=== PATIENT | female | born 1970 | race Caucasian/White ===

== ENCOUNTER → 2017-01-24 | Outpatient (CLI) | payer BC ==
--- NOTE | 2017-01-25 07:10 | CT ---
EXAMINATION TYPE: CT abdomen pelvis w con DATE OF EXAM: 01/24/2017 5:48 PM HISTORY: Abdominal pain that is worsening x10 days. CT DLP: 378.9mGycm Automated Exposure Control for Dose Reduction was Utilized. CONTRAST: CT scan of the abdomen and pelvis is performed with IV Contrast, patient injected with 100 mL of Omni paque 300. COMPARISON: CT abdomen pelvis dated 10/15/2012 FINDINGS: LUNG BASES: No significant abnormality is appreciated other than bibasilar subsegmental atelectasis. LIVER/GB: Numerous hypoattenuated hepatic lesions are scattered throughout the hepatic parenchyma the largest within the left hepatic lobe measuring approximately 1.2 cm. Some of these are stable from t he prior exam, others more pronounced, and others less pronounced. These are favored to be benign in etiology and may represent biliary hamartomas, cysts or hemangiomas. The gallbladder is elongated but the common bile duct is within normal limits of size measuring 3 mm. No right upper quadrant fat str anding is seen or gallbladder wall thickening. No pericholecystic fluid. PANCREAS: There is persistent mild ductal dilatation of the main pancreatic duct measuring up to 3.5 mm at the pancreatic body. Both the ventral and dorsal ducts are dilated. Pancreatic parenchyma is un remarkable. SPLEEN: At least 2 hypoattenuated subcentimeter splenic lesions are seen that are stable from the gianna or exam and likely relate to benign hemangiomas or lymphangiomas. ADRENALS: No significant abnormality is seen. KIDNEYS: No significant abnormality is seen. The previously described 4.5 mm left renal cyst is not v isualized on this examination. BOWEL: No significant abnormality is seen. No enlarged or dilated bowel is noted. UTERUS/ADNEXA: No gross abnormality seen. Follicular changes are seen of the right ovary with resolut ion of the previously seen right adnexal cystic structure on the exam of 10/15/2012. Uterus is multilo bulated with a fundal leiomyoma. LYMPH NODES: No greater than 1cm abdominal or pelvic lymph nodes are appreciated. A prominent right i nternal iliac chain lymph node measures 9 mm but is unchanged from the prior exam. OSSEOUS STRUCTURES: No significant abnormality is seen. Mild degenerative changes are seen of the lum bosacral junction. OTHER: No significant additional abnormality is seen. IMPRESSION: 1. No CT finding is seen to account for patient's worsening abdominal pain. 2. Resolved right ovarian cystic lesion with follicular change and not seen of the right ovary. 3. Numerous hepatic hypoattenuating lesions some of which are no longer seen from the prior exam, logan e of which are more pronounced than on the prior exam, and some of which are stable from the prior ex am. These are favored to represent a benign etiology and may represent biliary hamartomas, cysts, or hemangiomas however the majority are subcentimeter and too small to accurately characterize.
== END | disposition home or self-care (01) ==
LOC: RADCTMAIN 16:51
PROVIDERS: ATTEND Internal Medicine
DX: K76.9 Liver disease, unspecified (principal)
CPT/HCPCS: 74177; Q9967

== ENCOUNTER 2017-11-11 16:24 | Emergency (ER) | payer BC ==
--- NOTE | 2017-11-11 17:25 | ED ---
General Adult HPI - General Chief complaint: Chest Pain Stated complaint: Chest Tightness Time Seen by Provider: 11/11/17 17:10 Source: patient, RN notes reviewed Mode of arrival: ambulatory Limitations: no limitations - History of Present Illness Initial comments: This is a 47 year old female who presents with a chief complaint of left lower chest pain that radiates down her left flank to her left mid back. These symptoms began yesterday. She denies any associated increase in pain intensity after eating. She denies shortness of breath fever, chills or abdominal pain. She states the pain is worse when she takes a deep inspiration. The pain is better when the patient sits up right or leans slightly forward. She states that she has an appointment scheduled with her primary care physician, but felt that she should come to the Emergency department since the symptoms have not seemed to resolve. - Related Data Home Medications Medication Instructions Recorded Confirmed Zicam 1 tab PO DAILY PRN 11/11/17 11/11/17 Previous Rx's Medication Instructions Recorded Ibuprofen [Motrin] 600 mg PO Q8HR PRN #30 tab 11/11/17 Allergies Allergy/AdvReac Type Severity Reaction Status Date / Time bee pollen Allergy Swelling Verified 11/11/17 17:29 Sulfa (Sulfonamide Allergy Rash/Hives Verified 11/11/17 17:29 Antibiotics) Review of Systems ROS Statement: Those systems with pertinent positive or pertinent negative responses have been documented in the HPI. ROS Other: All systems not noted in ROS Statement are negative. Past Medical History Past Medical History: No Reported History History of Any Multi-Drug Resistant Organisms: None Reported Past Surgical History: No Surgical Hx Reported Past Psychological History: No Psychological Hx Reported Smoking Status: Never smoker Past Alcohol Use History: Occasional Past Drug Use History: None Reported General Exam Limitations: no limitations General appearance: alert, in no apparent distress Head exam: Present: atraumatic, normocephalic, normal inspection Eye exam: Present: normal appearance, PERRL, EOMI. Absent: scleral icterus, conjunctival injection, periorbital swelling Neck exam: Present: normal inspection. Absent: tenderness, meningismus, lymphadenopathy Respiratory exam: Present: normal lung sounds bilaterally, chest wall tenderness. Absent: respiratory distress, wheezes, rales, rhonchi, stridor Cardiovascular Exam: Present: regular rate, normal rhythm, normal heart sounds. Absent: systolic murmur, diastolic murmur, rubs, gallop, clicks, JVD, S3, S4 GI/Abdominal exam: Present: soft, normal bowel sounds. Absent: distended, tenderness, guarding, rebound, rigid Extremities exam: Present: normal inspection, full ROM, normal capillary refill. Absent: tenderness, pedal edema, joint swelling, calf tenderness Back exam: Present: normal inspection, full ROM. Absent: tenderness Neurological exam: Present: alert, oriented X3, CN II-XII intact Psychiatric exam: Present: normal affect, normal mood Skin exam: Present: warm, dry, intact, normal color. Absent: rash Course Vital Signs 11/11/17 11/11/17 17:05 18:48 Temperature 97.6 F 97.7 F Pulse Rate 71 54 L Respiratory 18 16 Rate Blood Pressure 112/58 111/58 O2 Sat by Pulse 99 100 Oximetry EKG Findings - EKG Comments: EKG Findings:: EKG performed at 16:32 normal Sinus rhythm rate of 77 KS 140 QRS 94 QT/QTC 398/450 Medical Decision Making - Medical Decision Making 47-year-old female presented emergency department to complaint of left-sided chest pressure and pain worse with movement. Patient does have some symptoms consistent with a bronchitis. Patient had lab work, EKG, chest x-ray all within normal limits. She has no cardiac risk factors. D-dimer was negative I did discuss all the results with patient ARE answered BuSpar knowledge. Patient is comfortable with discharge and follow-up with her primary care physician at her scheduled appointment. We discussed return parameters. - Lab Data Result diagrams: 11/11/17 17:45 11/11/17 17:45 Lab Results 11/11/17 11/11/17 11/11/17 Range/Units 17:45 17:45 17:45 WBC 6.1 (3.8-10.6) k/uL RBC 4.30 (3.80-5.40) m/uL Hgb 13.0 (11.4-16.0) gm/dL Hct 40.7 (34.0-46.0) % MCV 94.5 (80.0-100.0) fL MCH 30.3 (25.0-35.0) pg MCHC 32.1 (31.0-37.0) g/dL RDW 12.7 (11.5-15.5) % Plt Count 244 (150-450) k/uL Neutrophils % 44 % Lymphocytes % 43 % Monocytes % 5 % Eosinophils % 4 % Basophils % 1 % Neutrophils # 2.7 (1.3-7.7) k/uL Lymphocytes # 2.6 (1.0-4.8) k/uL Monocytes # 0.3 (0-1.0) k/uL Eosinophils # 0.3 (0-0.7) k/uL Basophils # 0.1 (0-0.2) k/uL D-Dimer 0.19 (<0.60) mg/L FEU Sodium 143 (137-145) mmol/L Potassium 3.9 (3.5-5.1) mmol/L Chloride 108 H (98-107) mmol/L Carbon Dioxide 26 (22-30) mmol/L Anion Gap 9 mmol/L BUN 15 (7-17) mg/dL Creatinine 0.73 (0.52-1.04) mg/dL Est GFR (MDRD) Af Amer >60 (>60 ml/min/1.73 sqM) Est GFR (MDRD) Non-Af >60 (>60 ml/min/1.73 sqM) Glucose 86 (74-99) mg/dL Calcium 9.8 (8.4-10.2) mg/dL Total Bilirubin 0.4 (0.2-1.3) mg/dL AST 18 (14-36) U/L ALT 22 (9-52) U/L Alkaline Phosphatase 75 (38-126) U/L Total Creatine Kinase (30-135) U/L CK-MB (CK-2) (0.0-2.4) ng/mL CK-MB (CK-2) Rel Index Troponin I (0.000-0.034) ng/mL Total Protein 6.7 (6.3-8.2) g/dL Albumin 4.1 (3.5-5.0) g/dL Amylase 55 (30-110) U/L Lipase 92 (23-300) U/L Urine Color Urine Appearance (Clear) Urine pH (5.0-8.0) Ur Specific [place] (1.001-1.035) Urine Protein (Negative) Urine Glucose (UA) (Negative) Urine Ketones (Negative) Urine Blood (Negative) Urine Nitrite (Negative) Urine Bilirubin (Negative) Urine Urobilinogen (<2.0) mg/dL Ur Leukocyte Esterase (Negative) Urine RBC (0-5) /hpf Urine WBC (0-5) /hpf Ur Squamous Epith Cells (0-4) /hpf Urine Bacteria (None) /hpf Urine HCG, Qual (Not Detectd) 11/11/17 11/11/17 11/11/17 Range/Units 17:45 17:45 17:45 WBC (3.8-10.6) k/uL RBC (3.80-5.40) m/uL Hgb (11.4-16.0) gm/dL Hct (34.0-46.0) % MCV (80.0-100.0) fL MCH (25.0-35.0) pg MCHC (31.0-37.0) g/dL RDW (11.5-15.5) % Plt Count (150-450) k/uL Neutrophils % % Lymphocytes % % Monocytes % % Eosinophils % % Basophils % % Neutrophils # (1.3-7.7) k/uL Lymphocytes # (1.0-4.8) k/uL Monocytes # (0-1.0) k/uL Eosinophils # (0-0.7) k/uL Basophils # (0-0.2) k/uL D-Dimer (<0.60) mg/L FEU Sodium (137-145) mmol/L Potassium (3.5-5.1) mmol/L Chloride (98-107) mmol/L Carbon Dioxide (22-30) mmol/L Anion Gap mmol/L BUN (7-17) mg/dL Creatinine (0.52-1.04) mg/dL Est GFR (MDRD) Af Amer (>60 ml/min/1.73 sqM) Est GFR (MDRD) Non-Af (>60 ml/min/1.73 sqM) Glucose (74-99) mg/dL Calcium (8.4-10.2) mg/dL Total Bilirubin (0.2-1.3) mg/dL AST (14-36) U/L ALT (9-52) U/L Alkaline Phosphatase (38-126) U/L Total Creatine Kinase 41 (30-135) U/L CK-MB (CK-2) 0.5 (0.0-2.4) ng/mL CK-MB (CK-2) Rel Index 1.2 Troponin I <0.012 (0.000-0.034) ng/mL Total Protein (6.3-8.2) g/dL Albumin (3.5-5.0) g/dL Amylase (30-110) U/L Lipase (23-300) U/L Urine Color Light Yellow Urine Appearance Clear (Clear) Urine pH 7.0 (5.0-8.0) Ur Specific [place] 1.003 (1.001-1.035) Urine Protein Negative (Negative) Urine Glucose (UA) Negative (Negative) Urine Ketones Negative (Negative) Urine Blood Trace H (Negative) Urine Nitrite Negative (Negative) Urine Bilirubin Negative (Negative) Urine Urobilinogen <2.0 (<2.0) mg/dL Ur Leukocyte Esterase Small H (Negative) Urine RBC 1 (0-5) /hpf Urine WBC 1 (0-5) /hpf Ur Squamous Epith Cells <1 (0-4) /hpf Urine Bacteria Rare H (None) /hpf Urine HCG, Qual Not Detected (Not Detectd) Disposition Clinical Impression: Left-sided chest wall pain, Chest pain, musculoskeletal Disposition: HOME SELF-CARE Condition: Stable Instructions: Chest Pain (ED) Additional Instructions: Please return to the Emergency Department if symptoms worsen or any other concerns. Prescriptions: Ibuprofen [Motrin] 600 mg PO Q8HR PRN #30 tab PRN Reason: Pain Referrals: Suma Hernandez MD [Primary Care Provider] - 1-2 days Time of Disposition: 19:16
[2017-11-11 18:04] LABS: Basophils # (A) 0.1 k/uL (0-0.2); Basophils % (A) 1 %; Eosinophils # (A) 0.3 k/uL (0-0.7); Eosinophils % (A) 4 %; HCT 40.7 % (34.0-46.0); Lymphocytes # (A) 2.6 k/uL (1.0-4.8); Lymphocytes % (A) 43 %; MCH 30.3 pg (25.0-35.0); MCHC 32.1 g/dL (31.0-37.0); MCV 94.5 fL (80.0-100.0); Mean Platelet Volume 7.5; Monocytes # (A) 0.3 k/uL (0-1.0); Monocytes % (A) 5 %; Neutrophils # (A) 2.7 k/uL (1.3-7.7); Neutrophils % (A) 44 %; Platelet Count 244 k/uL (150-450); RDW 12.7 % (11.5-15.5); WBC 6.1 k/uL (3.8-10.6)
[2017-11-11 18:09] LABS: ALT 22 U/L (9-52); AST 18 U/L (14-36); Albumin 4.1 g/dL (3.5-5.0); Alkaline Phosphatase 75 U/L (38-126); Amylase 55 U/L (30-110); Anion Gap 9 mmol/L; Blood Urea Nitrogen 15 mg/dL (7-17); Calcium 9.8 mg/dL (8.4-10.2); Carbon Dioxide 26 mmol/L (22-30); Chloride 108 mmol/L (98-107); Glucose 86 mg/dL (74-99); Lipase 92 U/L (23-300); Potassium 3.9 mmol/L (3.5-5.1); Sodium 143 mmol/L (137-145); Total Bilirubin 0.4 mg/dL (0.2-1.3); Total Protein 6.7 g/dL (6.3-8.2)
[2017-11-11 18:10] LABS: Appearance,Urine Clear (Clear); Bacteria,Urine Rare /hpf; Bilirubin,Urine Negative (Negative); Blood,Urine Trace (Negative); Color,Urine Light Yellow; Glucose,Urine (UA) Negative (Negative); Ketones,Urine Negative (Negative); Leukocyte Esterase,Urine Small (Negative); Nitrite,Urine Negative (Negative); Protein,Urine Negative (Negative); RBC,Urine 1 /hpf (0-5); Specific Gravity,Urine 1.003 (1.001-1.035); Squamous Epithelial Cell,Urine <1 /hpf (0-4); Urobilinogen,Urine <2.0 mg/dL (<2.0); WBC,Urine 1 /hpf (0-5)
[2017-11-11 18:18] LABS: Creatine Kinase 41 U/L (30-135)
[2017-11-11] MEDS ORDERED: KETOROLAC 30 MG/ML 1 ML VIAL IVP STA (18:30)
[2017-11-11 18:31] LABS: Creatine Kinase MB 0.5 ng/mL (0.0-2.4); Troponin I <0.012 ng/mL (0.000-0.034)
--- NOTE | 2017-11-11 19:26 | XR ---
EXAMINATION TYPE: XR chest 2V DATE OF EXAM: 11/11/2017 COMPARISON: NONE HISTORY: Chest pain TECHNIQUE: Frontal and lateral views of the chest are obtained. FINDINGS: Heart and mediastinum are normal. Lungs are clear. Diaphragm is normal. Bony thorax is nor mal. There are chest leads. IMPRESSION: Normal chest
[2017-11-11 19:32] VITALS: BP 94/61; PULSE 60; RESP 18; TEMP 97.4
== END 2017-11-11 19:32 | disposition home or self-care (01) ==
LOC: EC 16:24
DX: R07.89 Other chest pain (principal); R10.9 Unspecified abdominal pain; M54.9 Dorsalgia, unspecified; Z91.030 Bee allergy status; Z88.2 Allergy status to sulfonamides
CPT/HCPCS: 36415; 93005; 85379; 80053; 82150; 82550; 82553; 83690; 84484; 85025; 81001; 81025; 71046; 99285; 96374; J1885

== ENCOUNTER → 2017-11-28 | Outpatient (CLI) | payer BC ==
--- NOTE | 2017-11-28 08:26 | US ---
EXAMINATION TYPE: US abdomen complete DATE OF EXAM: 11/28/2017 COMPARISON: US kidneys 06/15/[address] abdomen pelvis 02/13/2017 CLINICAL HISTORY: K87 Disorder of Biliary Track and. patient states chest pain and heaviness. EXAM MEASUREMENTS: Liver Length: 10.4 cm Gallbladder Wall: 0.2 cm CBD: 0.3 cm Spleen: 9.6 cm Right Kidney: 9.9 x 3.9 x 5.1 cm Left Kidney: 11.6 x 5.3 x 5.5 cm Pancreas: visualized portions wnl Liver: wnl Gallbladder: No stones seen Evidence for sonographic Blackman's sign: No CBD: wnl Spleen: wnl Right Kidney: No hydronephrosis or masses seen Left Kidney: No hydronephrosis or masses seen Upper IVC: wnl Abd Aorta: wnl There is no ascites. The liver is homogenous, small hypodensities noted on prior CT within the liver are not seen definiti vely on ultrasound. The intrahepatic portion of the IVC and proximal abdominal aorta are within norm al limits. There is no evidence of cholelithiasis. Common bile duct is unremarkable. The visualize d portions of the pancreas are homogenous. The spleen is unremarkable. Kidneys are symmetric and fr ee of hydronephrosis. No renal lesions are seen. IMPRESSION: No significant abnormalities evident.
[2017-11-28 09:06] LABS: T4, Free (Free Thyroxine) 1.04 ng/dL (0.78-2.19)
[2017-11-28 18:37] LABS: Hemoglobin A1C 5.5 % (4.0-6.0)
== END | disposition home or self-care (01) ==
LOC: RADUSWWP 07:33
PROVIDERS: ATTEND Internal Medicine
DX: K87 Disorders of gallbladder, biliary tract and pancreas in diseases classified elsewhere (principal); E78.00 Pure hypercholesterolemia, unspecified
CPT/HCPCS: 36415; 76700; 80061; 82306; 82550; 83036; 84439; 84443

== ENCOUNTER → 2018-08-25 | Outpatient (CLI) | payer BC ==
--- NOTE | 2018-08-25 19:52 | MR ---
EXAMINATION TYPE: MR knee LT wo con DATE OF EXAM: 08/25/2018 COMPARISON: Outside x-ray dated 08/04/2018 HISTORY: Left Knee Pain with some swelling since05/2018 TECHNIQUE: Multiplanar, multisequence imaging of the left knee is performed without IV contrast. FINDINGS: MEDIAL MENISCUS: There is pseudoextrusion of the medial meniscus with complex signal involving the mumtaz dy and posterior horn of the medial mixed compatible with meniscal tear. LATERAL MENISCUS: Increased signal involving the anterior horn of the lateral meniscus compatible wit h meniscal tear CRUCIATE LIGAMENTS: The anterior and posterior cruciate ligaments are intact and unremarkable. COLLATERAL LIGAMENTS: Lateral collateral ligament intact. There is increased signal surrounding the M CL. Findings compatible with MCL strain. EXTENSOR MECHANISM: Visualized quadriceps and patellar tendons are intact. EFFUSION: There is a small amount of fluid in the suprapatellar bursa. POPLITEAL CYST: No popliteal/villagran cyst. TRICOMPARTMENT SPACES: There is narrowing of the medial compartment of the knee joint and there is gr mirta 3 localized chondromalacia of the articular cartilage. No free fragment seen. BONE MARROW SIGNAL: No edema involving the medial tibia and femur at the level of the articular surfa ce likely reactive and related to bone contusion. OTHER: Small amount of prepatellar soft tissue edema noted. IMPRESSION: 1. Complex tear posterior horn and body medial meniscus. Reactive marrow edema noted within the adjac ent tibia and femur as discussed above. 2. MCL strain. 3. Findings compatible with tear anterior horn lateral meniscus. 4. Osteoarthritis medial compartment of the knee with grade III chondromalacia involving the articula r femoral cartilage.
== END | disposition home or self-care (01) ==
LOC: RADMRIMAIN 17:04
PROVIDERS: ATTEND Orthopaedic Surgery
DX: S83.282A Other tear of lateral meniscus, current injury, left knee, initial encounter (principal); S83.242A Other tear of medial meniscus, current injury, left knee, initial encounter; S83.412A Sprain of medial collateral ligament of left knee, initial encounter; M17.12 Unilateral primary osteoarthritis, left knee; M94.262 Chondromalacia, left knee

== ENCOUNTER → 2018-09-29 | Outpatient (CLI) | payer BC ==
[2018-09-29 17:09] LABS: Basophils # (A) 0.1 k/uL (0-0.2); Basophils % (A) 1 %; Eosinophils # (A) 0.2 k/uL (0-0.7); Eosinophils % (A) 3 %; HCT 39.3 % (34.0-46.0); HGB 13.1 gm/dL (11.4-16.0); Lymphocytes # (A) 2.8 k/uL (1.0-4.8); Lymphocytes % (A) 40 %; MCH 31.1 pg (25.0-35.0); MCHC 33.4 g/dL (31.0-37.0); MCV 93.1 fL (80.0-100.0); Mean Platelet Volume 7.2; Monocytes # (A) 0.4 k/uL (0-1.0); Monocytes % (A) 5 %; Neutrophils # (A) 3.4 k/uL (1.3-7.7); Neutrophils % (A) 49 %; Platelet Count 245 k/uL (150-450); RBC 4.22 m/uL (3.80-5.40); RDW 13.3 % (11.5-15.5)
[2018-09-29 17:15] LABS: Potassium 4.8 mmol/L (3.5-5.1)
== END | disposition home or self-care (01) ==
LOC: LABPAT 16:12
PROVIDERS: ATTEND Orthopaedic Surgery
DX: Z01.812 Encounter for preprocedural laboratory examination (principal); M23.92 Unspecified internal derangement of left knee
CPT/HCPCS: 36415; 80051; 85025

== ENCOUNTER → 2018-10-10 | Day surgery (SDC) | payer BC ==
[2018-10-08 15:22] VITALS: BMI 25.8
--- NOTE | 2018-10-09 10:58 | HP ---
HISTORY AND PHYSICAL CHIEF COMPLAINT: Left knee pain. 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 She is having pain with prolonged walking and giving intermittent giving way. She has tried anti-inflammatories with only partial temporary relief. She notes it does significantly limit her. PAST MEDICAL HISTORY: Significant for irritable bowel syndrome. PAST SURGICAL HISTORY: Significant for endometrial ablation. CURRENT MEDICATIONS: Restasis. She notes allergies to SULFA. FAMILY HISTORY: Significant for cancer. SOCIAL HISTORY: Negative for current tobacco or alcohol use. REVIEW OF SYSTEMS: A 16 point review of systems otherwise reviewed and is noncontributory. PHYSICAL EXAMINATION: On examination, the patient is approximately 5 foot 3, 146 pounds of mesomorphic habitus. HEENT exam is nonfocal. Neck is supple. She has painless passive motion of her left hip. Straight leg raise is negative. Active motion left knee -8 to 130 degrees of flexion. She has a moderate effusion. She is tender about the medial joint line. Collaterals are stable, Nikky is negative, Roxie's elicits medial pain. Her distal neurovascular exam appears intact in the left lower extremity. MRI report from on 08/25/2018 shows a posterior medial meniscal tear. IMPRESSION: 1. Left knee moderate medial compartment osteoarthrosis. 2. Left knee medial meniscal tear-symptomatic. RECOMMENDATIONS: I talked to the patient at length regarding her condition and treatment options. At this point, she is quite symptomatic and opts to proceed with surgery. Will plan to proceed with arthroscopic evaluation with possible partial medial meniscectomy. Risks and benefits were discussed at length in layman's terms. We will likely perform that as an outpatient procedure. MMODL / IJN: [id number] /
[~2018-10-10] MED LIST: DEXAMETHASONE SOD PHOSPHATE 10 MG/ML 1 ML VIAL IV ONE; EPINEPHrine (PF) 1 ML in SODIUM CHLORIDE 0.9% IRRIGATIO 3,000 ML IRRIGATION ONE; HYDROcodone/APAP 5-325MG 1 EACH TAB PO ONE; HYDROmorphone 0.5 MG/0.5 ML SYRINGE IVP ONE; LACTATED RINGERS 1,000 ML IV ONE; LACTATED RINGERS 1,000 ML IV SCH; LIDOCAINE 1% 20 ML VIAL (10MG/ML) FOR IV START INTRADERMA ONE; LIDOCAINE 1% INJ 10MG/ML (20 ML MDV) ONE; MIDAZOLAM 2 MG/2 ML VIAL ONE; ONDANSETRON 4 MG/2 ML VIAL IVP ONE; PROPOFOL 10 MG/ML 20 ML VIAL IV ONE; ceFAZolin 1,000 MG in DEXTROSE/WATER 1 50ML.BAG IVPB ONE; fentaNYL (PF) 50 MCG/ML 2 ML AMP ONE
--- NOTE | 2018-10-10 12:49 | P.OP ---
Date of Procedure: 10/10/18 Preoperative Diagnosis: Right knee internal derangement Postoperative Diagnosis: Right knee posterior medial meniscal tear Procedure(s) Performed: Right knee arthroscopic partial medial meniscectomy Anesthesia: DEEA Surgeon: Tariq Haider Estimated Blood Loss (ml): 10 Pathology: none sent Condition: stable Disposition: PACU Indications for Procedure: The patient's a 48-year-old female who presents with progressive right knee pain and mechanical symptoms despite conservative measures. A discussion of the risks and benefits of operative intervention versus continued conservative measures was made with the patient. She opted to proceed with surgery. Operative risks to include infection, neurovascular injury, development of blood clots, possible incomplete resolution of symptoms, possible worsening of symptoms and need for subsequent procedures was discussed. Informed consent was obtained. Operative Findings: As below Description of Procedure: The patient was brought to the operating room, and after induction of general anesthesia examined the right knee. Collaterals were stable, Nikky was negative, and posterior drawer was negative. The right lower extremity was prepped and draped in a normal fashion. A superior lateral portal was made through a 3 mm skin incision superior and lateral to the patella. This was used for outflow. A lateral portal was made through a 5 mm vertical skin incision lateral to the patella tendon above the joint line. Diagnostic arthroscopy was performed. On inspection of the medial compartment an oblique tear involving the posterior horn of the medial meniscus in the white-red junction was noted. This was not amenable to repair.. This was debrided back to stable base with straight baskets and a motorized shaver. Grade 23 chondral changes were noted diffusely of the medial compartment. On inspection of the notch, the anterior cruciate ligament appeared to be intact. On inspection of the lateral compartment no significant meniscal or cartilage pathology was noted.. On inspection of the patellofemoral articulation there were minimal degenerative changes.. The gutters were clear of debris. The knee was then thoroughly irrigated. The portals were closed with Steri-Strips. A sterile dressing was applied in addition to a compression stocking. The patient was awoken from general anesthesia and transferred to recovery room in good condition. Blood loss was estimated at 10 mL. No complications were incurred.
[2018-10-10 12:58] VITALS: TEMP 97.1
[2018-10-10 13:07] VITALS: RESP 16
[2018-10-10 13:55] VITALS: BP 106/67; PULSE 77
--- NOTE | 2018-10-14 08:45 | CDI ---
Outpatient Documentation Clarification Form Date: 10/14/18 CDS/Card Maker Name: Diana Winkler Phone: If any questions, call Lakshmi Lucas [facility] at [phone] Patient Name: Azul Sanz Admit Date: 10/10/18 Discharge Date: 10/10/18 ATTENTION: The [facility] Coding Staff appreciate your assistance in clarifying documentation. Please respond to the clarification below the line at the bottom and electronically sign. The [facility] Coding staff will review the response and follow-up if needed. Please note: Queries are made part of the Legal Health Record. If you have any questions, please contact the Sheep Clipper. Dear Dr. Haider, The order, H&P, and Anesthesia record all state a knee diagnosis related to the LEFT knee and indicate that an arthroscopic meniscectomy is to be performed on the LEFT knee. To the contrary, the Op report states the patient has a RIGHT meniscal tear and a RIGHT arthroscopic meniscectomy was performed. Please clarify which knee is diseased and which knee surgery was performed on. Thank you for your kind consideration. The left knee was the operative/correct knee. Please change operative note to reflect that. [facility] [facility]
== END | disposition home or self-care (01) ==
LOC: OR 10:41
PROVIDERS: ATTEND Orthopaedic Surgery
DX: S83.242A Other tear of medial meniscus, current injury, left knee, initial encounter (principal); X58.XXXA Exposure to other specified factors, initial encounter; M17.12 Unilateral primary osteoarthritis, left knee; K58.9 Irritable bowel syndrome, unspecified; Z79.899 Other long term (current) drug therapy; Z88.2 Allergy status to sulfonamides
CPT/HCPCS: 29881; 81025; J2250; J1100; J2405; J0171; J2001; J3010; J2704; J1170

== ENCOUNTER → 2019-03-13 | Outpatient (CLI) | payer BC ==
[2019-03-13 09:58] LABS: Basophils % (A) 1 %; Eosinophils # (A) 0.2 k/uL (0-0.7); Eosinophils % (A) 4 %; HCT 39.7 % (34.0-46.0); HGB 13.1 gm/dL (11.4-16.0); Lymphocytes % (A) 43 %; MCH 30.2 pg (25.0-35.0); MCHC 32.9 g/dL (31.0-37.0); MCV 91.9 fL (80.0-100.0); Mean Platelet Volume 7.5; Monocytes # (A) 0.3 k/uL (0-1.0); Monocytes % (A) 6 %; Neutrophils % (A) 43 %; Platelet Count 281 k/uL (150-450); RBC 4.32 m/uL (3.80-5.40); RDW 13.5 % (11.5-15.5); WBC 4.6 k/uL (3.8-10.6)
--- NOTE | 2019-03-13 10:03 | XR ---
EXAMINATION TYPE: XR abdomen 2V DATE OF EXAM: 03/13/2019 COMPARISON: NONE HISTORY: Lower back pain and hematuria TECHNIQUE: One view abdominal series FINDINGS: The osseous structures are intact. The bowel gas pattern is nonspecific. Numerous calcifications are seen in the pelvis. They are nonspecific. Renal outline: No calcifications are seen overlying the kidneys.. IMPRESSION: 1. Nonspecific abdomen.
[2019-03-13 17:06] LABS: African American GFR (CKD) 101.8 (60.0-200.0); Albumin 4.2 g/dL (3.80-4.90); Albumin/Globulin Ratio 2.21 (1.60-3.17); Anion Gap 7.9 mmol/L (4.00-12.00); BUN/Creat Ratio 18.75 Ratio (12.00-20.00); Carbon Dioxide 27.1 mmol/L (21.6-31.8); Globulin 1.9 g/dL (1.6-3.3); Potassium 4.3 mmol/L (3.5-5.5); Total Bilirubin 0.8 mg/dL (0.2-1.2); Total Protein 6.1 g/dL (6.2-8.2)
[2019-03-13 17:13] LABS: T4, Free (Free Thyroxine) 1.2 ng/dL (0.80-1.80)
[2019-03-13 18:29] LABS: Hemoglobin A1C 5.7 % (4.0-6.0)
== END | disposition home or self-care (01) ==
LOC: LABWHC1 08:53
PROVIDERS: ATTEND Internal Medicine
DX: R31.9 Hematuria, unspecified (principal); J30.89 Other allergic rhinitis; E78.00 Pure hypercholesterolemia, unspecified
CPT/HCPCS: 36415; 74019; 80053; 80061; 83036; 84439; 84443; 85025

== ENCOUNTER 2019-05-25 04:32 | Emergency (ER) | payer BC ==
[2019-05-25] MEDS ORDERED: PHENAZOPYRIDINE 200 MG TAB PO STA (04:51)
--- NOTE | 2019-05-25 04:53 | ED ---
Female Urogenital HPI - General Chief complaint: Urogenital Stated complaint: Back pain,poss UTI Time Seen by Provider: 05/25/19 04:50 Source: patient Mode of arrival: ambulatory Limitations: no limitations - History of Present Illness Initial comments: Azul is a pleasant 48-year-old female who presents to the emergency department today for evaluation of right lower quadrant abdominal pain. Patient reports that on Saturday she had episode of urinary frequency and dysuria with right- sided abdominal pain. She sought care at an urgent care and was told she likely had a urinary tract infection however review of this chart reveals is no evidence of urinary tract infection. Patient was prescribed Macrobid and discharged home. Patient reports that since that time she's had progressively worsening pain in her right lower quadrant and occasionally pain in her right flank. She has no associated nausea vomiting or diarrhea though she does report decreased appetite secondary to discomfort. Patient became concerned that she may have appendicitis so she came to the ER for further evaluation. - Related Data Home Medications Medication Instructions Recorded Confirmed cycloSPORINE 0.05% OPHTH SOLN 1 drop BOTH EYES BID 10/10/18 05/25/19 [Restasis] Nitrofurantoin Monohyd/M-Cryst 100 cap PO BID 05/25/19 05/25/19 [Macrobid] Allergies Allergy/AdvReac Type Severity Reaction Status Date / Time bee pollen Allergy Swelling Verified 05/25/19 04:37 Sulfa (Sulfonamide Allergy Rash/Hives Verified 05/25/19 04:37 Antibiotics) Review of Systems ROS Statement: Those systems with pertinent positive or pertinent negative responses have been documented in the HPI. ROS Other: All systems not noted in ROS Statement are negative. Past Medical History Past Medical History: No Reported History History of Any Multi-Drug Resistant Organisms: None Reported Past Surgical History: Orthopedic Surgery Additional Past Surgical History / Comment(s): left knee meniscus repair, Past Anesthesia/Blood Transfusion Reactions: No Reported Reaction Past Psychological History: No Psychological Hx Reported Smoking Status: Never smoker Past Alcohol Use History: Rare Past Drug Use History: None Reported - Past Family History Mother Family Medical History: No Reported History General Exam - General Exam Comments Initial Comments: Physical Exam GENERAL: Patient is well-developed and well-nourished. Patient is nontoxic and well- hydrated and is in no distress. HENT: Normocephalic, Atraumatic. EYES: PERRL, EOMI PULMONARY: Unlabored respirations. No audible rales rhonchi or wheezing was noted. CARDIOVASCULAR: There is a regular rate and rhythm without any murmurs gallops or rubs. ABDOMEN: Soft, non-peritoneal Mild tenderness to deep palpation of right lower quadrant SKIN: Skin is clear with no lesions or rashes and otherwise unremarkable. : Deferred NEUROLOGIC: Patient is alert and oriented x3. Moving all extremities spontaneously MUSCULOSKELETAL: Normal extremities with adequate strength and full range of motion. No lower extremity swelling or edema. No calf tenderness. PSYCHIATRIC: Normal psychiatric evaluation. Limitations: no limitations Course Vital Signs 05/25/19 04:33 Temperature 98.0 F Pulse Rate 88 Respiratory 17 Rate Blood Pressure 140/99 O2 Sat by Pulse 100 Oximetry Medical Decision Making - Medical Decision Making The patient was seen and evaluated, history is obtained from the patient Urinalysis no signs of urinary tract infection Labs and imaging were ordered Is relatively unremarkable, no significant abnormalities, computed tomography scan with no significant abnormalities as an acute appendicitis no hydronephrosis Results were discussed with patient, given that the patient is having pain dysuria and urinary frequency I do suspect that she is likely suffering hematuria due to a very smoky any stone that was not visualized her may be has R he passed. Patient will be discharged home with a Tylenol 3 starter pack, advises that she has no signs of urinary tract infection is no indication to continue the Macrobid. - Lab Data Result diagrams: 05/25/19 05:34 05/25/19 05:34 Lab Results 05/25/19 05/25/19 05/25/19 Range/Units 04:40 05:34 05:34 WBC 6.1 (3.8-10.6) k/uL RBC 4.27 (3.80-5.40) m/uL Hgb 13.2 (11.4-16.0) gm/dL Hct 39.1 (34.0-46.0) % MCV 91.7 (80.0-100.0) fL MCH 31.0 (25.0-35.0) pg MCHC 33.8 (31.0-37.0) g/dL RDW 14.7 (11.5-15.5) % Plt Count 225 (150-450) k/uL Neutrophils % 56 % Lymphocytes % 31 % Monocytes % 7 % Eosinophils % 4 % Basophils % 1 % Neutrophils # 3.4 (1.3-7.7) k/uL Lymphocytes # 1.9 (1.0-4.8) k/uL Monocytes # 0.4 (0-1.0) k/uL Eosinophils # 0.3 (0-0.7) k/uL Basophils # 0.1 (0-0.2) k/uL Sodium 139 (137-145) mmol/L Potassium 4.1 (3.5-5.1) mmol/L Chloride 107 (98-107) mmol/L Carbon Dioxide 26 (22-30) mmol/L Anion Gap 6 mmol/L BUN 20 H (7-17) mg/dL Creatinine 0.69 (0.52-1.04) mg/dL Est GFR (CKD-EPI)AfAm >90 (>60 ml/min/1.73 sqM) Est GFR (CKD-EPI)NonAf >90 (>60 ml/min/1.73 sqM) Glucose 106 H (74-99) mg/dL Calcium 9.1 (8.4-10.2) mg/dL Total Bilirubin 0.4 (0.2-1.3) mg/dL AST 19 (14-36) U/L ALT 22 (9-52) U/L Alkaline Phosphatase 71 (38-126) U/L Total Protein 6.4 (6.3-8.2) g/dL Albumin 3.8 (3.5-5.0) g/dL Urine Color Yellow Urine Appearance Cloudy H (Clear) Urine pH 6.5 (5.0-8.0) Ur Specific [place] 1.017 (1.001-1.035) Urine Protein Negative (Negative) Urine Glucose (UA) Negative (Negative) Urine Ketones Negative (Negative) Urine Blood Moderate H (Negative) Urine Nitrite Negative (Negative) Urine Bilirubin Negative (Negative) Urine Urobilinogen <2.0 (<2.0) mg/dL Ur Leukocyte Esterase Negative (Negative) Urine RBC 12 H (0-5) /hpf Urine WBC 1 (0-5) /hpf Ur Squamous Epith Cells <1 (0-4) /hpf Amorphous Sediment Rare H (None) /hpf Urine Mucus Rare H (None) /hpf Disposition Clinical Impression: Hematuria Disposition: HOME SELF-CARE Condition: Stable Instructions (If sedation given, give patient instructions): Kidney Stones (ED) Is patient prescribed a controlled substance at d/c from ED?: No Referrals: Suma Hernandez MD [Primary Care Provider] - 1-2 days Usama Trimble MD [STAFF PHYSICIAN] - 1-2 days
[2019-05-25 04:58] LABS: Amorphous Sediment,Urine Rare /hpf; Appearance,Urine Cloudy (Clear); Bilirubin,Urine Negative (Negative); Blood,Urine Moderate (Negative); Color,Urine Yellow; Glucose,Urine (UA) Negative (Negative); Ketones,Urine Negative (Negative); Leukocyte Esterase,Urine Negative (Negative); Mucus,Urine Rare /hpf; Nitrite,Urine Negative (Negative); PH, Urine 6.5 (5.0-8.0); Protein,Urine Negative (Negative); RBC,Urine 12 /hpf (0-5); Specific Gravity,Urine 1.017 (1.001-1.035); Squamous Epithelial Cell,Urine <1 /hpf (0-4); Urobilinogen,Urine <2.0 mg/dL (<2.0)
[2019-05-25 05:41] LABS: Basophils # (A) 0.1 k/uL (0-0.2); Basophils % (A) 1 %; Eosinophils # (A) 0.3 k/uL (0-0.7); Eosinophils % (A) 4 %; HCT 39.1 % (34.0-46.0); HGB 13.2 gm/dL (11.4-16.0); Lymphocytes # (A) 1.9 k/uL (1.0-4.8); Lymphocytes % (A) 31 %; MCHC 33.8 g/dL (31.0-37.0); MCV 91.7 fL (80.0-100.0); Mean Platelet Volume 8.1; Monocytes # (A) 0.4 k/uL (0-1.0); Monocytes % (A) 7 %; Neutrophils # (A) 3.4 k/uL (1.3-7.7); Neutrophils % (A) 56 %; Platelet Count 225 k/uL (150-450); RBC 4.27 m/uL (3.80-5.40); RDW 14.7 % (11.5-15.5); WBC 6.1 k/uL (3.8-10.6)
[2019-05-25 05:49] LABS: ALT 22 U/L (9-52); AST 19 U/L (14-36); African American GFR (CKD) >90 (>60 ml/min/1.73 sqM); Albumin 3.8 g/dL (3.5-5.0); Alkaline Phosphatase 71 U/L (38-126); Anion Gap 6 mmol/L; Blood Urea Nitrogen 20 mg/dL (7-17); Calcium 9.1 mg/dL (8.4-10.2); Carbon Dioxide 26 mmol/L (22-30); Chloride 107 mmol/L (98-107); Glucose 106 mg/dL (74-99); Potassium 4.1 mmol/L (3.5-5.1); Sodium 139 mmol/L (137-145); Total Bilirubin 0.4 mg/dL (0.2-1.3); Total Protein 6.4 g/dL (6.3-8.2)
--- NOTE | 2019-05-25 06:33 | CT ---
EXAM: CT Abdomen and Pelvis With Intravenous Contrast CLINICAL HISTORY: ITS.REASON CT Reason: abdominal pain RLQ TECHNIQUE: Axial computed tomography images of the abdomen and pelvis with intravenous contrast. This CT exam was performed using one or more of the following dose reduction techniques: automated exposure control, adjustment of the mA and/or kV according to patient size, and/or use of iterative reconstruction technique. COMPARISON: No relevant prior studies available. FINDINGS: Lung bases: Unremarkable. No mass. No consolidation. ABDOMEN: Liver: Scattered hepatic cysts and tiny indeterminate lesions. Gallbladder and bile ducts: No abnormal ductal dilation or stones. Pancreas: Unremarkable. No mass. No ductal dilation. Spleen: Unremarkable. No splenomegaly. Adrenals: Unremarkable. No mass. Kidneys and ureters: Unremarkable. No solid mass. No hydronephrosis. Stomach and bowel: No obstruction. No mucosal thickening. PELVIS: Appendix: No findings to suggest acute appendicitis. Bladder: Unremarkable. No mass. Reproductive: Unremarkable as visualized. ABDOMEN and PELVIS: Intraperitoneal space: Unremarkable. No free air. No significant fluid collection. Bones/joints: No acute fracture. No dislocation. Soft tissues: Unremarkable. Vasculature: No abdominal aortic aneurysm. Lymph nodes: Unremarkable. No enlarged lymph nodes. IMPRESSION: No acute findings.
[2019-05-25] MEDS ORDERED: KETOROLAC 30 MG/ML 1 ML VIAL IVP ONE (06:49)
[2019-05-25] MEDS ORDERED: ACET/COD 300 MG/30 MG STARTER PACK 6 TAB BTL PO STA (06:55)
[2019-05-25 06:56] VITALS: BP 122/66; PULSE 86; RESP 18; TEMP 98.7
== END 2019-05-25 07:03 | disposition home or self-care (01) ==
LOC: EC 04:32
DX: R31.9 Hematuria, unspecified (principal); R30.0 Dysuria; R35.0 Frequency of micturition; R10.31 Right lower quadrant pain; R63.8 Other symptoms and signs concerning food and fluid intake; Z88.2 Allergy status to sulfonamides; Z91.030 Bee allergy status
CPT/HCPCS: 36415; 80053; 85025; 81001; 74177; 99284; 96374; J1885; Q9967

== ENCOUNTER → 2019-05-29 | Outpatient (CLI) | payer BC ==
--- NOTE | 2019-05-29 10:55 | XR ---
EXAM TYPE: LUMBAR SPINE X RAY SERIES COMPARISON: NONE HISTORY: Lower back pain TECHNIQUE: 4 views are submitted. FINDINGS: Alignment is anatomic. The pedicles are intact. The transverse processes are intact. There is no s pondylolysis or spondylolisthesis. Facet arthropathy L4-5 and L5-S1 with mild degenerative disc dise ase L5-S1. IMPRESSION: 1. Degenerative disc disease L5-S1 consider MRI..
== END | disposition home or self-care (01) ==
LOC: RADXRMAIN 10:20
PROVIDERS: ATTEND Internal Medicine Geriatric Medicine
DX: M51.37 Other intervertebral disc degeneration, lumbosacral region (principal)
CPT/HCPCS: 72110

== ENCOUNTER 2022-04-09 11:26 | Day surgery (SDC) | payer BC, OTHER ==
[2022-04-06 08:21] VITALS: BMI 26.0
[~2022-04-09 11:26] MED LIST changes: -DEXAMETHASONE SOD PHOSPHATE 10 MG/ML 1 ML VIAL IV ONE; -EPINEPHrine (PF) 1 ML in SODIUM CHLORIDE 0.9% IRRIGATIO 3,000 ML IRRIGATION ONE; -HYDROcodone/APAP 5-325MG 1 EACH TAB PO ONE; -HYDROmorphone 0.5 MG/0.5 ML SYRINGE IVP ONE; -LACTATED RINGERS 1,000 ML IV ONE; -LACTATED RINGERS 1,000 ML IV SCH; +LIDOCAINE 1% (10MG/ML) FOR IV START INTRADERMA PRN; -LIDOCAINE 1% 20 ML VIAL (10MG/ML) FOR IV START INTRADERMA ONE; -LIDOCAINE 1% INJ 10MG/ML (20 ML MDV) ONE; -MIDAZOLAM 2 MG/2 ML VIAL ONE; -ONDANSETRON 4 MG/2 ML VIAL IVP ONE; -PROPOFOL 10 MG/ML 20 ML VIAL IV ONE; -ceFAZolin 1,000 MG in DEXTROSE/WATER 1 50ML.BAG IVPB ONE; -fentaNYL (PF) 50 MCG/ML 2 ML AMP ONE
[2022-04-09] MEDS: LACTATED RINGERS 1,000 ML IV SCH ×2 (11:50→12:00)
[2022-04-09 12:07] VITALS: RESP 16; TEMP 97.3
[2022-04-09] MEDS ORDERED: PROPOFOL 10 MG/ML 20 ML VIAL IV ONE (12:10)
--- NOTE | 2022-04-09 12:29 | P.PCN ---
Date of Procedure: 04/09/22 Preoperative Diagnosis: Colon cancer screening Postoperative Diagnosis: Colon cancer screening, diverticulosis Procedure(s) Performed: Colonoscopy Anesthesia: MAC Surgeon: Hiral Alva Pathology: none sent Condition: stable Disposition: PACU Description of Procedure: Patient presents for first colon cancer screening. She's taken to the endoscopy suite worry colonoscope is passed per rectum to the cecum. She had a fairly good prep. There is a small amount of fluid which is easily aspirated. There are a few diverticuli noted in the sigmoid colon. The colon is otherwise without evidence of polyp, mass lesion, ulcer, stricture or other mucosal abnormality. No significant hemorrhoidal disease was seen on retroflexion of the scope. She tolerated the procedure without difficulty and is taken to recovery room in satisfactory condition. Repeat colonoscopy in 10 years as long as nothing changes with the bowel habits. Plan - Discharge Summary Discharge Rx Participant: No New Discharge Prescriptions: No Action cycloSPORINE 0.05% OPHTH SOLN [Restasis] 1 drop BOTH EYES BID Discharge Medication List cycloSPORINE 0.05% OPHTH SOLN [Restasis] 1 drop BOTH EYES BID 10/10/18 [History] Discharge Disposition: HOME SELF-CARE
[2022-04-09 12:54] VITALS: BP 99/63; PULSE 54
== END 2022-04-09 13:06 | disposition home or self-care (01) ==
LOC: ORWHC2ENDO 11:26
PROVIDERS: ATTEND Surgery
DX: Z12.11 Encounter for screening for malignant neoplasm of colon (principal); K57.30 Diverticulosis of large intestine without perforation or abscess without bleeding; Z88.2 Allergy status to sulfonamides; Z79.899 Other long term (current) drug therapy; Z88.6 Allergy status to analgesic agent
CPT/HCPCS: 81025; J2704; G0121